=== PATIENT | female | born 1965 | race Caucasian/White ===

== ENCOUNTER → 2016-10-07 | Outpatient (CLI) | payer BC ==
[~2016-10-07] MED LIST: GENTAMICIN EYE D5 ML OP; NO HOME MEDICATIONS
== END ==
LOC: MC.RAD 08-27 15:40
DX: Z12.31 Encounter for screening mammogram for malignant neoplasm of breast (principal)

== ENCOUNTER → 2017-10-31 | Outpatient (CLI) | payer BC | LOC: MC.RAD 10-13 11:20 | DX: Z12.31 Encounter for screening mammogram for malignant neoplasm of breast (principal) ==

== ENCOUNTER → 2018-12-29 | Outpatient (CLI) | payer BC | LOC: MC.RAD 11-16 14:30 | DX: Z12.31 Encounter for screening mammogram for malignant neoplasm of breast (principal) ==

== ENCOUNTER → 2020-02-14 | Outpatient (CLI) | payer BC | LOC: MC.RAD 12-31 13:15 | DX: Z12.31 Encounter for screening mammogram for malignant neoplasm of breast (principal) ==

== ENCOUNTER → 2021-03-02 | Outpatient (CLI) | payer BC | LOC: MC.RAD 07:30 | DX: Z12.31 Encounter for screening mammogram for malignant neoplasm of breast (principal) ==

== ENCOUNTER → 2021-12-19 | Outpatient (CLI) | payer BC | LOC: MHCPAIN 13:49 | DX: M43.16 Spondylolisthesis, lumbar region (principal); M51.16 Intervertebral disc disorders with radiculopathy, lumbar region; M54.50 Low back pain, unspecified; M53.3 Sacrococcygeal disorders, not elsewhere classified | CPT/HCPCS: G0463 ==

== ENCOUNTER → 2022-01-08 | Outpatient (CLI) | payer BC | LOC: MHCPAIN 13:23 | DX: M54.16 Radiculopathy, lumbar region (principal); M43.16 Spondylolisthesis, lumbar region | CPT/HCPCS: G0463 ==

== ENCOUNTER → 2022-01-14 | Outpatient (CLI) | payer BC | LOC: MHCPAIN 12:42 | DX: M54.16 Radiculopathy, lumbar region (principal); M43.16 Spondylolisthesis, lumbar region | CPT/HCPCS: J1100; Q9967 ==

== ENCOUNTER → 2022-01-28 | Outpatient (CLI) | payer BC | LOC: MHCPAIN 11:35 | DX: M54.16 Radiculopathy, lumbar region (principal); M43.16 Spondylolisthesis, lumbar region | CPT/HCPCS: G0463 ==

== ENCOUNTER → 2022-02-18 | Outpatient (CLI) | payer BC | LOC: MHCPAIN 12:31 | DX: M47.816 Spondylosis without myelopathy or radiculopathy, lumbar region (principal); M54.16 Radiculopathy, lumbar region; M53.3 Sacrococcygeal disorders, not elsewhere classified | CPT/HCPCS: J1100; Q9967 ==

== ENCOUNTER → 2022-03-04 | Outpatient (CLI) | payer BC | LOC: MHCPAIN 10:31 | DX: M51.16 Intervertebral disc disorders with radiculopathy, lumbar region (principal); M43.16 Spondylolisthesis, lumbar region | CPT/HCPCS: G0463 ==

== ENCOUNTER → 2022-03-22 | Outpatient (CLI) | payer BC | LOC: MC.RAD 11:44 | DX: Z12.31 Encounter for screening mammogram for malignant neoplasm of breast (principal); N64.89 Other specified disorders of breast ==

== ENCOUNTER → 2022-03-29 | Outpatient (CLI) | payer BC | LOC: MC.RAD 07:51 | DX: N64.89 Other specified disorders of breast (principal) ==

== ENCOUNTER → 2024-04-20 | Outpatient (CLI) | payer BC | LOC: MC.RAD 10:29 | DX: Z12.31 Encounter for screening mammogram for malignant neoplasm of breast (principal) ==